=== PATIENT | female | born 1995 | race African-American/Black ===

== ENCOUNTER 2019-06-09 17:53 | Emergency (ER) | payer OTHER ==
[~2019-06-09] VITALS: Ht 172.7 cm; Wt 106.1 kg
[~2019-06-09 17:53] MED LIST: NOHOMEMEDICATIONS; NORCO 5-325 TA1 EACH PO; TIZANIDINE HCL4 MG PO
[2019-06-09] MEDS ORDERED: IBUPROFEN 800800 M1 PO (19:37)
[2019-06-09] MEDS ORDERED: NORFLEX100 MG PO (19:37)
[2019-06-09 20:38] VITALS: BP 128/84
== END 2019-06-09 20:39 | disposition home or self-care (01) ==
LOC: ER 17:53
DX: S29.012A Strain of muscle and tendon of back wall of thorax, initial encounter (principal); S39.012A Strain of muscle, fascia and tendon of lower back, initial encounter; V89.2XXA Person injured in unspecified motor-vehicle accident, traffic, initial encounter; Y92.89 Other specified places as the place of occurrence of the external cause; Y93.89 Activity, other specified; Y99.8 Other external cause status